=== PATIENT | male | born 1960 | race Caucasian/White ===

== ENCOUNTER → 2022-12-07 | Outpatient (CLI) | payer OTHER ==
--- NOTE | 2022-12-07 18:18 | Diagnostic Imaging Report ---
INDICATION: Displaced fracture of the coronoid process of the ulna. Pain. EXAMINATION: Right hand, 12/07/2022. FINDINGS: Three views of the hand. Coronoid process of the ulna not evaluated on this examination. Visualized osseous structures demonstrate degenerative findings throughout the wrist. There is interphalangeal joint space narrowing and spurring throughout all fingers. No fractures or dislocations. IMPRESSION: 1. Chronic findings with no acute osseous abnormality. Dictated by: Dictated on workstation # [id number]
== END ==
LOC: RAD FS 09:25
PROVIDERS: ATTEND Nurse Practitioner
DX: M65.311 Trigger thumb, right thumb (principal)
CPT/HCPCS: 73130